=== PATIENT | female | born 1985 | race Caucasian/White ===

== ENCOUNTER 2020-12-21 16:04 | Outpatient (CLI) | payer BC, SELFPAY ==
[2020-12-21 17:19] LABS: Beta HCG Quantitative < 2.39 mIU/ML
== END 2020-12-21 16:05 | disposition home or self-care (01) ==
PROVIDERS: PCP Family Medicine; Visit Provider Obstetrics & Gynecology Gynecology
DX: Z01.818 Encounter for other preprocedural examination (principal)
CPT/HCPCS: 36415; 84702

== ENCOUNTER 2020-12-22 12:10 | Outpatient (CLI) | payer BC, SELFPAY ==
--- NOTE | ~2020-12-22 | XR_ITS ---
XR hysterosalpingogram DATE: 12/22/2020 12:46 INDICATION: Fertility testing TECHNIQUE: Fluoroscopy and spot images were performed during a hysterosalpingogram procedure performe d by the referring spa manager. 0.7 minutes fluoroscopy time 3. Images DAP: 8.877 COMPARISON: None FINDINGS: The uterine cavity appears normal. Normal size of the fallopian tubes. There is bilateral f ree peritoneal spillage. IMPRESSION: Normal hysterosalpingogram; bilateral fallopian tube patency Reviewed, dictated and finalized at [facility]. Reviewed, dictated and finalized at [facility]. [employer] ENGINE OPTIMIZATION MANAGER
== END 2020-12-22 12:11 | disposition home or self-care (01) ==
PROVIDERS: PCP Family Medicine; Visit Provider Obstetrics & Gynecology Gynecology
DX: Z31.41 Encounter for fertility testing (principal)
CPT/HCPCS: 58340; 74740; Q9966

== ENCOUNTER → 2021-10-23 14:22 | Outpatient (CLI) | payer SELFPAY ==
--- NOTE | ~2021-10-23 | MR_ITS ---
EXAMINATION: MR knee LT wo con DATE: 10/23/2021 15:05 INDICATION: Left knee pain TECHNIQUE: Magnetic resonance imaging (MRI) of the left knee was performed without intravenous contra st. Sequences included coronal PD-weighted FSE, coronal PD-weighted FS FSE, sagittal T2-weighted FSE , sagittal PD-weighted FS FSE and axial PD weighted fat saturated FSE. COMPARISON: None. FINDINGS: Medial compartment: Medial meniscus is normal. Articular cartilage is normal. Lateral compartment: Lateral meniscus is normal. Osteochondral injury with small region of full-thickness cartilage loss o verlying a small impaction fracture which extends 12 mm medial to lateral and approximately 5 mm AP a t the junction of the anterior weightbearing lateral femoral condyle and the inferior aspect of the l ateral trochlea. The cortex at this location is depressed 1-2 mm. There is some surrounding marrow ed bernadine. Remaining cartilage in the lateral compartment is normal. Patellofemoral compartment: Marrow edema associated with an additional impaction fracture at the inferior aspect of the medial pa tellar facet. There is an 8 x 4 mm linear low signal intensity likely small cortical fragment alongsi de the fracture margin. There is small cartilage defect and deep chondral fissuring at the inferior a spect of the medial facet and the immediately adjacent inferomedial aspect of the lateral facet. Loca tion suggests a patellar dislocation/relocation injury. Ligaments and tendons: Anterior and posterior cruciate ligaments are normal. The medial collateral ligament and fibular primo ateral ligament complex are normal. Patellar tendon appears slightly lax with wavy contour to the mid to distal tendon. The patellar tendon is otherwise normal as is the quadriceps tendon. Partial tear of the atrophy patellar insertion of the medial patellofemoral retinaculum. The visualized medial and lateral hamstring tendons as well as the iliotibial band are normal. Fluid: Small left knee joint effusion collecting in the lateral gutter of the suprapatellar pouch. No intra- articular loose bodies identified. Osseous/other: 1 cm lateral patellar subluxation. There also appears to be patella orquidea likely underestimated given the mild laxity of the patellar tendon. Impaction fractures as previous noted at the inferomedial asp ect of the patella and along the lateral aspect of the lateral femoral condyle at the junction of the trochlear and weightbearing articular surfaces. Pattern suggests prior patellar dislocation/relocati on injury pattern. Aside from the associated reactive edema there is normal marrow signal. No patholo gic marrow replacing process. IMPRESSION: 1. Impaction fractures with osteochondral injuries at the inferomedial aspect of the patella and at t he lateral femoral condyle at the junction of the trochlear and anterior weightbearing articular surf aces. Location along with partial tear of the medial patellofemoral retinaculum suggests prior patell ar dislocation/relocation injury pattern. 2. Patella orquidea and 1 cm lateral patellar subluxation. Reviewed, dictated and finalized at [facility]. NICIAN SUPPORT ENGINEER IMPRESSION: 1. Impaction fractures with osteochondral injuries at the inferomedial aspect o f the patella and at the lateral femoral condyle at the junction of the trochle ar and anterior weightbearing articular surfaces. Location along with partial t ear of the medial patellofemoral retinaculum suggests prior patellar dislocatio n/relocation injury pattern. 2. Patella orquidea and 1 cm lateral patellar subluxation.
== END ==
PROVIDERS: PCP Family Medicine; Visit Provider Family Medicine
DX: S82.092A Other fracture of left patella, initial encounter for closed fracture (principal); X58.XXXA Exposure to other specified factors, initial encounter
CPT/HCPCS: 73721

== ENCOUNTER 2021-11-13 13:51 | Outpatient (RCR) | payer BC, SELFPAY ==
--- NOTE | 2021-11-13 15:02 | PTOPEVAL ---
Thank you for referring Marion Boyle to [facility].? The patient is scheduled to be seen for therapy? ____x/week for ___ weeks. Please review, sign, date and return this plan of care CAR. I agree with and certify that the following plan of care is medically necessary. Referring Physician Date Admitting Provider: Attending Provider: Gerardo Pradhan, MD Referring Provider: *PT Outpatient Evaluation Start: 11/13/21 13:51 Freq: Status: Active Protocol: Document 11/13/21 13:51 ACR (Rec: 11/13/21 15:02 ACR [id number]) Therapy Assessment Status Assessment Status Assessment Status Evaluation Evaluation Information Problem Diagnosis L patella dislocation Onset 09/14/21 Subjective Information Patient states that her dog Query Text:As Reported By Patient/ jumped on the back of her leg Family and she felt her knee cap pop out of place and it is still not in place. Patient states this is the forth time this has happened. She states that she went to the MD and he would like to do surgery. She states she has a torn ligament and cartilage in the area as well. She states that she was not walking with the crutches originally, but is now to take the load off and the MD would like her off of the crutches. Surgery is planned for November 29. Patient states that walking is the most painful at the joint line. She states that she is afraid of going down the stairs because she does not want it to give out on her. She is here with her own brace because the one that the doctor gave her was painful. 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
== END 2021-12-04 11:37 | disposition home or self-care (01) ==
LOC: CHSPT 13:51
PROVIDERS: Visit Provider Orthopaedic Surgery
DX: S83.005D Unspecified dislocation of left patella, subsequent encounter (principal)
CPT/HCPCS: 97110; 97112; 97161